=== PATIENT | male | born 1950 | race Caucasian/White ===

== ENCOUNTER 2021-03-25 20:44 | Emergency (ER) | payer MEDICARE, SELFPAY ==
[2021-03-25 20:51] VITALS: BP 153/89; PULSE 58; RESP 18; TEMP 36.3; O2SAT 100
[2021-03-25 22:19] VITALS: BP 150/80; PULSE 56; TEMP 37; O2SAT 100
--- NOTE | 2021-03-25 22:36 | ED.EXTPRO ---
HPI - Extremity Problem General Chief complaint: Extremity Problem,Nontraumatic Stated complaint: R foot swollen x 2 days Time Seen by Provider: 03/25/21 21:40 Source: patient and family History of Present Illness HPI Narrative: 71 years old white male complaining of nontraumatic pain at the right ankle and back of the right lower leg started 3 days ago. Patient was in airplane, 3 hours, 1 day prior to that. Patient denies any chest pain or shortness of breath. Patient denies any fever, chills, nausea, vomiting. Patient is not on antiplatelet or anticoagulant medication. Related Data Home Medications Medication Instructions Recorded Confirmed Adults Multivitamin 03/25/21 Calcarb 600 With Vitamin D 03/25/21 bupropion HCl 03/25/21 divalproex 03/25/21 famotidine 03/25/21 fluticasone propionate 03/25/21 lamotrigine 03/25/21 levothyroxine 03/25/21 omeprazole 03/25/21 simvastatin 03/25/21 timolol 03/25/21 vitamin B complex 03/25/21 vitamin E 03/25/21 Allergies Allergy/AdvReac Type Severity Reaction Status Date / Time No Known Allergies Allergy Verified 03/25/21 21:13 Review of Systems Review of Systems: CONSTITUTIONAL: Denies fever, chills, or sweats. EYES: Denies visual changes, redness, or discharge. ENT: Denies rhinorrhea, congestion, sore throat, or otalgia. CARDIOVASCULAR: Denies chest pain, palpitations, or edema. RESPIRATORY: Denies cough or dyspnea. GASTROINTESTINAL: Denies abdominal pain, nausea, vomiting, or diarrhea. GENITOURINARY: Denies dysuria or hematuria. SKIN: Denies rash or itching. MUSCULOSKELETAL: Denies back pain, joint pain, or myalgia. NEUROLOGIC: Denies headache, numbness, or weakness. PSYCHIATRIC: Denies anxiety or depression. Exam Narrative: General appearance: Well-developed, well-nourished Skin: Normal color Head: Normocephalic, nontraumatic Eyes: Clear conjunctiva ENT: Oropharynx normal, ears normal, nose normal Neck: Supple, nontender Chest and respiratory: Airway patent, no respiratory distress, no accessory muscle use Heart: Regular rate/rhythm Abdomen: Soft, nontender, no organomegaly, quiet bowel sounds Vascular: Normal peripheral pulses, normal capillary refill. Musculoskeletal: Right lower leg showed diffuse tenderness mainly at the calf area, slightly swollen compared to the left 1, no bruises, no erythema, no focal tenderness, no limited range of motion of the right ankle or right knee. 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, no gross motor deficit Course Course Emergency Course: Stable Vital Signs Vital signs: Vital Signs Temperature 36.3 C L 03/25/21 20:51 Pulse Rate 58 L 03/25/21 20:51 Respiratory Rate 18 03/25/21 20:51 Blood Pressure 153/89 H 03/25/21 20:51 Pulse Oximetry 100 03/25/21 20:51 Temperature 37.0 C 03/25/21 22:19 Pulse Rate 56 L 03/25/21 22:19 Respiratory Rate 18 03/25/21 20:51 Blood Pressure 150/80 H 03/25/21 22:19 Pulse Oximetry 100 03/25/21 22:19 MDM - Extremity (Nontraumatic) MDM Narrative Medical decision making narrative: Work-up showed elevated D-dimer, plus tenderness and swelling of the right lower leg, consistent with deep vein thrombosis. Lovenox was given in the ED prior to discharge, patient scheduled to get venous Doppler of the right lower extremity in a.m. Critical Care Time Critical Care Time Critical Care Time: No Discharge Plan Discharge Clinical Impression: Acute leg pain Patient Disposition: Home, Self-Care Condition: Stable Instructions: Antibiotic Form, Leg Pain (ED) Additional Instructions: Come to the radiology department at 7 AM for venous Doppler of
--- NOTE | 2021-03-25 22:41 | PC.NURSE ---
Labs collected per glass installer technician.
[2021-03-25 23:11] LABS: D Dimer 7.44 ug/mL (<0.48)
[2021-03-26] MEDS: ENOXAPARIN 80 MG/0.8 ML SYRINGE SUB-Q (00:18)
== END 2021-03-26 00:25 | disposition home or self-care (01) ==
PROVIDERS: Emergency Provider Emergency Medicine
DX: M79.661 Pain in right lower leg (principal)
CPT/HCPCS: 36415; 85380; 96372; 99283; J1650

== ENCOUNTER 2021-03-26 07:19 | Outpatient (CLI) | payer MEDICARE, SELFPAY ==
--- NOTE | ~2021-03-26 | US_ITS ---
EXAMINATION: US venous doppler LE EXAM DATE: 03/26/2021 07:54 INDICATION: M79.606 - Pain in leg, unspecified TECHNIQUE: Multiple grayscale, color flow and Doppler images of the right lower extremity deep venous system obtained and reviewed. There is no prior study for comparison. FINDINGS: RIGHT SIDE Common femoral: -------- Normal. Profunda femoral: ------- Normal. Femoral: Thrombosed. Popliteal: Thrombosed. Posterior tibial: --------- Normal. Peroneal: Thrombosed. Gastrocnemius: Not visualized. Soleus: Not visualized. Greater saphenous: ----- Normal. Lesser saphenous: ------ Not visualized. IMPRESSION: Positive for right femoral, popliteal, peroneal DVT. Reviewed, dictated and finalized at location A. EL MANAGER
== END 2021-03-26 07:20 | disposition home or self-care (01) ==
PROVIDERS: PCP Emergency Medicine; Visit Provider Emergency Medicine
DX: I82.431 Acute embolism and thrombosis of right popliteal vein (principal); I82.451 Acute embolism and thrombosis of right peroneal vein; I82.411 Acute embolism and thrombosis of right femoral vein
CPT/HCPCS: 93971

== ENCOUNTER 2021-03-26 08:23 | Observation (INO) | payer MEDICARE, SELFPAY ==
[2021-03-26] VITALS (31 sets, daily range): BP systolic 102–141; BP diastolic 59–97; PULSE 51–84; RESP 13–20; TEMP 36.1–36.9; O2SAT 92–100
--- NOTE | ~2021-03-26 | XR_ITS ---
EXAMINATION: XR chest 2V DATE: 03/26/2021 19:32 INDICATION: Shortness of breath TECHNIQUE: Frontal and lateral views of the chest are obtained COMPARISON: None available FINDINGS: There are minimal airspace opacities of the left upper lung zone. There is no pleural effus ion or pneumothorax. Calcified bilateral hilar and mediastinal lymph nodes are consistent with old gr anulomatous disease. The heart size is normal. There our age indeterminate compression fractures of t he thoracic and lumbar spine. IMPRESSION: 1. Minimal airspace opacity of the left upper lobe, consistent with atelectasis versus pneumonia. Reviewed, dictated and finalized at location F. [place] CLIENT MANAGER
--- NOTE | ~2021-03-26 | CT_ITS ---
EXAMINATION: CTA chest PE protocol DATE: 03/27/2021 09:35 INDICATION: Shortness of breath. TECHNIQUE: Computed tomography angiography (CTA) of the chest was performed with 100 mL Omnipaque-350 intravenous contrast timed to evaluate the pulmonary arteries. Coronal maximum intensity projection 3D-reconstructions were created by the technologist. Automated exposure control and iterative reconst ruction technique were employed. The dose-length product was 346.27 mGy-cm. COMPARISON: Chest 2 views 03/26/2021 FINDINGS: There is mild atelectasis bilaterally. Calcified bilateral lung nodules and calcified hilar and mediastinal lymph nodes are consistent with old granulomatous disease. No pleural effusion. Card iomegaly is noted. No pericardial effusion. Calcifications in the liver and spleen are consistent wit h old granulomatous disease. There are cysts in the liver measuring up to 1.6 cm. There is no pulmona ry embolus. There is an old healed fracture of the sternum. There are multiple chronic vertebral body fractures. There is mild thoracic spondylosis. IMPRESSION: 1. No pulmonary embolus. Reviewed, dictated and finalized at location A. TENDER IMPRESSION: 1. No pulmonary embolus.
[2021-03-26 09:21] LABS: Basophils Percent Auto 0.6 % (0.2-1.2); Eosinophils Absolute Auto 0.4 K/mm3 (0-0.3); Eosinophils Percent Auto 6.5 % (0-4.4); Hematocrit 36.2 % (42.0-52.0); Hemoglobin 11.4 g/dL (14.0-18.0); Immature Granulocyte Absolute 0.02 K/mm3 (0.00-0.031); Immature Granulocyte Percent A 0.3 % (0-0.5); Lymphocytes Absolute Auto 1.29 K/mm3 (0.9-3.2); Lymphocytes Percent Auto 20.9 % (18.3-44.2); Mean Corpuscular HGB Conc 31.5 g/dl (32-36); Mean Corpuscular Hemoglobin 28.7 pg (26-34); Mean Corpuscular Volume 91.2 fl (80-100); Mean Platelet Volume 9.9 fl (7.4-10.4); Monocytes Absolute Auto 0.8 K/mm3 (0.1-0.6); Monocytes Percent Auto 13.6 % (2.6-8.5); Neutrophils Absolute Auto 3.6 K/mm3 (1.3-6.7); Neutrophils Percent Auto 58.1 % (45.5-73.1); Platelet Count Result 163 k/mm3 (150-375); Red Blood Count 3.97 M/mm3 (4.6-6.20); Red Cell Distribution Width 14.6 % (11.5-14.5); White Blood Count 6.2 K/mm3 (4.5-10.0)
[2021-03-26 09:32] LABS: Anion Gap 4 mmol/L (8-16); Blood Urea Nitrogen 18 mg/dL (9-20); Calcium 8.6 mg/dL (8.4-10.2); Carbon Dioxide 32 mmol/L (22-30); Chloride 103 mmol/L (98-107); Estimated CRCL calculation 50 ml/min; Estimated Glomerular Filt Rate 60; Glucose 95 mg/dL (65-110); Potassium 4.4 mmol/L (3.4-5.0); Sodium 139 mmol/L (137-145)
[2021-03-26 09:36] LABS: INR 1.2; Prothrombin Time 14.7 Seconds (11.1-14.7)
--- NOTE | 2021-03-26 10:31 | ED.GENADULT ---
HPI - General Adult General Chief complaint: Extremity Injury, Lower Stated complaint: postive venous doppler Time Seen by Provider: 03/26/21 08:38 Source: patient Mode of arrival: wheelchair Limitations: no limitations History of Present Illness HPI narrative: 71-year-old with no major medical problems here with complaints of right leg pain and swelling. Patient was seen last evening was discharged home after receiving Lovenox. Patient was at the ultrasound this morning which showed extensive DVT from femoral to peroneal. He presently denies any chest pain or shortness of breath. No history of fever or chills. As per the note patient had a recent air travel from [place]. He states that he lives in [place] and visiting family here in [place]. He denies any previous history of DVT Onset (ago): day(s) (1) Location: lower extremity (right) Radiation: non-radiation Severity: moderate Pain Consistency: constant Relieving factors: none Exacerbating factors: none Associated symptoms: denies other symptoms Related Data Home Medications Medication Instructions Recorded Confirmed Adults Multivitamin 03/25/21 Calcarb 600 With Vitamin D 03/25/21 bupropion HCl 03/25/21 divalproex 03/25/21 famotidine 03/25/21 fluticasone propionate 03/25/21 lamotrigine 03/25/21 levothyroxine 03/25/21 omeprazole 03/25/21 simvastatin 03/25/21 timolol 03/25/21 vitamin B complex 03/25/21 vitamin E 03/25/21 Allergies Allergy/AdvReac Type Severity Reaction Status Date / Time No Known Allergies Allergy Verified 03/26/21 08:40 Review of Systems Review of Systems: All systems reviewed & are unremarkable except as noted in HPI and below Constitutional: Constitutional: Reports no additional constitutional complaints Eyes: Eyes: Reports no additional eye complaints ENT: Reports system reviewed and no additional complaints, except as documented Cardiovascular: Cardiovascular: Reports no additional cardiovascular complaints Respiratory: Respiratory: Reports no additional respiratory complaints Gastrointestinal: Gastrointestinal: Reports no additional gastrointestinal complaints Musculoskeletal: Musculoskeletal: Reports as per HPI Integumentary/Breasts: Skin/Breast: Reports system reviewed and no additional complaints, except as docu Neurologic: Reports system reviewed and no additional complaints, except as documented Psychiatric: Psychiatric: Reports no additional psychiatric complaints Endocrine: Endocrine: Reports no additional endocrine complaints Exam Narrative: GENERAL: Well-appearing, well-nourished, and in no acute distress. HEAD: Normocephalic, atraumatic. EYES: PERRLA and EOMI. NECK: Supple. CHEST: Clear to auscultation. No respiratory distress. HEART: Regular rate and rhythm. No murmur heard. Normal peripheral pulses. ABDOMEN: Soft, nontender, nondistended, normal active bowel sounds. EXTREMITIES: Normal range of motion. Right leg swollen diffuse , non tender , palpable distal pulse. SKIN: Warm, dry, no rash. NEURO: No focal deficits. Alert and oriented x3. PSYCH: Normal mood and affect. Course Course Emergency Course: I reviewed the ultrasound report has a pretty extensive DVT. Patient is visiting from [place] has no primary doctor we will admit him to the hospital give him Lovenox and transition to oral anticoagulant. Discussed with hospitalist agreed to admit the patient. Vital Signs Vital signs: Vital Signs Temperature 36.6 C 03/26/21 08:29 Pulse Rate 54 L 03/26/21 08:29 Respiratory Rate 17 03/26/21 08:29 Blood Pressure 140/85 03/26/21 08:29 Pulse Oximetry 99 03/26/21 08:29 Temperature 36.6 C 03/26/21 08:29 Pulse Rate 55 L 03/26/21 10:00 Respiratory Rate 17 03/26/21 10:00 Blood Pressure 137/92 H 03/26/21 10:11 Pulse Oximetry 100 03/26/21 10:11 Medical Decision Making Vital Signs Vital Signs: Vital Signs Temperature 36.6 C 03/26/21 08
--- NOTE | 2021-03-26 10:36 | PC.NURSE ---
Per EDP Pee, administer Lovenox at 12pm, last dose was at 12am last night.
[2021-03-26] MEDS: ENOXAPARIN 80 MG/0.8 ML SYRINGE SUB-Q ×2 (11:13→20:10)
--- NOTE | 2021-03-26 13:24 | ADMGEN ---
This patient, Jeffrey Mccoy, was admitted to Medical Room 345-01. Patient/family oriented to hospital policies and general routines including ID bracelet, bed and alarms, visiting hours, pain management, procedures, bathroom and other care routines, personal items, smoking policy, room service/diet, and visiting hours. Information on how to activate the Rapid Response Team has been discussed. Patient/Family are encouraged to report perceived risks to care and to ask questions if they do not understand what they are told or what they should do.
--- NOTE | 2021-03-26 15:37 | PM.IMHP ---
H&P: HPI History of Present Illness Date/Time: PATIENT ADMITTED UNDER OBSERVATION STATUS 03/26/21 15:37 Chief Complaint: Leg swelling Narrative: 71yo male with hypothyroidism here for right leg edema and pain. Patient flew to [place] on March 19. The flight was about 2+ hours. No history DVT or PE. No family history of venous thromboembolic disease. Since arrival patient has noted increasing right lower extremity edema. He has also noted right medial calf/ankle pain. No right posterior calf pain or thigh pain. No left leg symptoms. No chest pain, shortness of breath, fever, chills, cough. He has no hx of asthma, COPD, sleep apnea, CAD, seizures or stroke history. Patient presented to the emergency room last evening. His D-Dimer was elevated. He was given a dose of therapeutic Lovenox and discharged home with a scheduled right LE ultrasound this morning. This morning, patient had a venous ultrasound of the right lower extremity which showed right femoral, popliteal and peroneal DVT. He returned to the ED. Lab work showed a serum bicarb of 32 and hemoglobin of 11.4. No complaints of rectal bleeding or abdominal pain. He had a colonoscopy about 5-6 years ago that was negative. He has yearly PSA test which have been negative. No weight loss. No enlarged lymph nodes that he is concerned about. No GERD symptoms but takes Pepcid and Omeprazole. He has been told he was anemic in the past. He takes the Testosterone for bone denisty. No alcohol, drug or tobacco use. Patient was started on therapeutic Lovenox and admitted for further care. Review of Systems Review of Systems: All systems reviewed & are unremarkable except as noted in HPI and below PMFSH Past Medical History Medical History (Updated 03/27/21 @ 00:00 by [facility] Da[facility]) Cataracts, bilateral Difficulty controlling anger Glaucoma Hyperlipidemia Hypothyroidism Osteoporosis TGA (transient global amnesia) Surgical History Surgical History (Updated 03/26/21 @ 17:03 by Jaden Ratliff MD) History of umbilical hernia repair Family History Family History (Updated 03/26/21 @ 17:03 by Jaden Ratliff MD) Other Unknown family medical history Social History Social History (Updated 03/26/21 @ 17:04 by Jaden Ratliff MD) Social History: Patient's mother and father by motor vehicle accident at a young age. He lives at home with his in [place]. No pets at home but the does have small horses. He quit tobacco in 1986 after smoking half a pack a day for about 19 years. He denies alcohol or drug use. He wishes to be a DNR. He nominated his to be the individual would make medical decisions for him if he is unable Smoking packs per day: 0.5 Smoking cigarettes per day: 10.0 Years smoked: 18 Smoking pack-years: 9.00 Smoking status: Former smoker Spiritual care concerns: No Meds Home Medications and Allergies Home Medications Medication Instructions Recorded Confirmed Type brimonidine-timolol [Combigan] 1 drp OPHTHALMIC (EYE) BID 03/26/21 03/26/21 History bupropion HCl 100 mg PO DAILY 03/26/21 03/26/21 History calcium carbonate-vitamin D3 1 tablet PO BID 03/26/21 03/26/21 History denosumab [Prolia] See Rx Instructions .ROUTE .COMPLEX 03/26/21 03/26/21 History divalproex 250 mg PO DAILY 03/26/21 03/26/21 History famotidine 20 mg PO DAILY 03/26/21 03/26/21 History fluticasone propionate 1 spray INTRANASAL DAILY 03/26/21 03/26/21 History levothyroxine [Euthyrox] 25 mcg PO DAILY 03/26/21 03/26/21 History htnvridjbshc-upq-qfjx-FA-vit K 1 tablet PO DAILY 03/26/21 03/26/21 History [Adults Multivitamin] omeprazole 20 mg PO HS 03/26/21 03/26/21 History pyridoxine (vitamin B6) 100 mg PO DAILY 03/26/21 03/26/21 History simvastatin 20 mg PO DAILY 03/26/21 03/26/21 History testosterone See Rx Instructions .ROUTE .COMPLEX 03/26/21 03/26/21 History vitamin E 180 mg PO DAILY 03/26/21 03/26/21 History
[2021-03-26] MEDS: PANTOPRAZOLE 40 MG TABLET PO (20:10)
[2021-03-26] MEDS: TIMOLOL MALEATE 0.5% OP SOLN 5 ML BOTTLE 1 DROP EACH EYE (20:10)
[2021-03-26] MEDS: BRIMONIDINE TARTRATE 0.2% OP SOLN 5 ML BTL 1 DROP EACH EYE (20:10)
[2021-03-27] VITALS (7 sets, daily range): BP systolic 127–133; BP diastolic 67–82; PULSE 48–81; RESP 16; TEMP 36.1; O2SAT 98–99
[2021-03-27 06:01] LABS: Basophils Percent Auto 0.6 % (0.2-1.2); Eosinophils Absolute Auto 0.4 K/mm3 (0-0.3); Eosinophils Percent Auto 6.1 % (0-4.4); Hematocrit 35.3 % (42.0-52.0); Hemoglobin 11.1 g/dL (14.0-18.0); Immature Granulocyte Absolute 0.01 K/mm3 (0.00-0.031); Immature Granulocyte Percent A 0.2 % (0-0.5); Lymphocytes Absolute Auto 1.51 K/mm3 (0.9-3.2); Lymphocytes Percent Auto 24.2 % (18.3-44.2); Mean Corpuscular HGB Conc 31.4 g/dl (32-36); Mean Corpuscular Hemoglobin 28.8 pg (26-34); Mean Corpuscular Volume 91.5 fl (80-100); Mean Platelet Volume 9.7 fl (7.4-10.4); Monocytes Absolute Auto 0.9 K/mm3 (0.1-0.6); Monocytes Percent Auto 13.8 % (2.6-8.5); Neutrophils Absolute Auto 3.4 K/mm3 (1.3-6.7); Neutrophils Percent Auto 55.1 % (45.5-73.1); Platelet Count Result 166 k/mm3 (150-375); Red Blood Count 3.86 M/mm3 (4.6-6.20); Red Cell Distribution Width 14.8 % (11.5-14.5); White Blood Count 6.2 K/mm3 (4.5-10.0)
[2021-03-27 06:36] LABS: Iron 36 ug/dL (49-181)
[2021-03-27 06:46] LABS: Percent Iron Saturation 10 % (20-50)
[2021-03-27 07:12] LABS: Folic Acid 18.6 ng/mL (2.76->20)
[2021-03-27] MEDS: PYRIDOXINE HCL 50 MG TABLET 100 MG PO (08:21)
[2021-03-27] MEDS: SIMVASTATIN 20 MG TABLET PO (08:21)
[2021-03-27] MEDS: MULTIVITAMINS /C LUTEIN (CENTRUM SILVER) TABLET *BKC 1 TAB PO (08:21)
[2021-03-27] MEDS: DIVALPROEX SODIUM DR 250 MG TABEC PO (08:21)
[2021-03-27] MEDS: APIXABAN 5 MG TABLET 10 MG PO (08:21)
[2021-03-27] MEDS: FLUTICASONE PROPIONATE 0.05% NA SPR 16 GM BTL (*BKC) 1 SPRAY NASAL (08:21)
[2021-03-27] MEDS: FAMOTIDINE 20 MG TABLET PO (08:21)
[2021-03-27] MEDS: VITAMIN E 400 UNIT CAPSULE PO (08:21)
[2021-03-27] MEDS: buPROPion HCL 100 MG TABLET PO (08:21)
[2021-03-27] MEDS: LEVOTHYROXINE SODIUM 25 MCG TABLET PO (08:21)
[2021-03-27] MEDS: TIMOLOL MALEATE 0.5% OP SOLN 5 ML BOTTLE 1 DROP EACH EYE (08:22)
[2021-03-27] MEDS: BRIMONIDINE TARTRATE 0.2% OP SOLN 5 ML BTL 1 DROP EACH EYE (08:22)
--- NOTE | 2021-03-27 15:45 | PM.DS ---
DS: Admitting Diagnosis Discharge Date 03/27/21 Admitting Diagnosis DVT DS: Discharge Diagnosis Discharge Diagnosis (1) DVT of deep femoral vein: Qualifiers: Laterality: right Qualified Code(s): I82.411 - Acute embolism and thrombosis of right femoral vein Code(s): I82.419 - Acute embolism and thrombosis of unspecified femoral vein Status: Acute (2) Anemia: Code(s): D64.9 - Anemia, unspecified Status: Acute (3) Difficulty controlling anger: Code(s): R45.4 - Irritability and anger Status: Inactive (4) Hypothyroidism: Code(s): E03.9 - Hypothyroidism, unspecified Status: Inactive DS: Summary Hospital Course Reason for hospitalization: 71yo male present back to the ED after having a positive ultrasound doppler for DVT. Please see H&P for details. Hospital Course: Patient presented to the ED 03/25/2021 with complaints right leg edema and pain. He had flown from [place] few days prior. His D-dimer was positive. He was given 1 dose of Lovenox and an outpatient venous Doppler was ordered. Patient had the venous Doppler on 03/26/2021 which showed right femoral, popliteal and peroneal DVT. Pt presented back to the emergency room. He was given another dose of Lovenox and admitted for further care. Chest x-ray showed minimal airspace opacity in the left upper lobe. Patient was not having any complaints of chest pain or shortness of breath. A CTA was performed which showed no pulmonary embolism. White count and platelet count were normal. Hemoglobin was low at 11.4. He has had a colonoscopy about 4 years ago. Basic metabolic panel was normal. Was noted to be iron deficient. B12 and folate levels were normal. He was transitioned to Eliquis. He could afford this medication. He overall did well as a to be discharged home on 03/27/2021 Status at Discharge Cognitive/behavioral status at discharge: stable Time Spent with Patient Time attestation: Total time spent providing and/or coordinating discharge services: 35 minutes Time spent: Greater than 30 minutes Exam Narrative: AF 96.9 127/82 64 16 99% ra Gen - NARD Chest - CTA bilaterally. Nml RR CV - RRR S1/S2 Abd - soft, NT/ND, +BS Ext -2+ DP pulses bilaterally. Minor right lower extremity edema. Psych - normal mood and affect. Skin - warm and dry. DS: Data Data Completed and Pending Labs on day of discharge: Labs from last 24 hours 03/27/21 03/27/21 03/27/21 05:27 05:27 05:27 WBC 6.2 RBC 3.86 L Hgb 11.1 L Hct 35.3 L MCV 91.5 MCH 28.8 MCHC 31.4 L RDW 14.8 H Plt Count 166 MPV 9.7 Immature Gran % (Auto) 0.2 Neut % (Auto) 55.1 Lymph % (Auto) 24.2 [place] % (Auto) 13.8 H Eos % (Auto) 6.1 H Baso % (Auto) 0.6 Lymph # (Auto) 1.51 [place] # (Auto) 0.9 H Eos # (Auto) 0.4 H Baso # (Auto) 0.0 Abs Immat Gran (auto) 0.01 Absolute Neuts (auto) 3.4 Absolute Nucleated RBC 0.0 Nucleated RBC % 0.0 Iron 36 L TIBC 350 % Saturation 10 L Ferritin 14.10 Vitamin B12 992.0 H Folate 18.6 Discharge Plan Discharge Attending physician on discharge: Jaden Ratliff Discharging Clinician: Jaden Ratliff Anticipated Discharge Date/Time: 03/27/21 15:55 Patient Disposition: Home, Self-Care Activity: as tolerated Diet: regular Discharge Instructions: Please avoid large gathering, wear face coverings in public and practice social distance. Take precautions to avoid falls. Rise slowly from a lying or sitting position. Pause before standing or walking. Contact your doctor or call 911 and come to the Emergency Room if you have any type of trauma, lightheadedness with standing or other worrisome symptoms. Avoid NSAIDs (ibuprofen, naproxen, Aleve). Tylenol is safe to take. Follow-up with your doctor in 1-2 weeks. Please call for appointment. You have been given a prescription for Eliqu
[2021-03-27 22:05] LABS: IFOB Positive Control Positive; Immunochemical Fecal Occult Bl Negative (N)
== END 2021-03-27 18:15 | disposition home or self-care (01) ==
LOC: ANHED 10:40 → ANH3MED 15:32
PROVIDERS: Admitting Provider Internal Medicine; Emergency Provider Family Medicine; Visit Provider Internal Medicine
DX: I82.412 Acute embolism and thrombosis of left femoral vein (principal); D64.9 Anemia, unspecified; R45.4 Irritability and anger; H40.9 Unspecified glaucoma; E03.9 Hypothyroidism, unspecified; E78.5 Hyperlipidemia, unspecified; M81.0 Age-related osteoporosis without current pathological fracture; G45.4 Transient global amnesia
CPT/HCPCS: 36415; 71046; 71275; 80048; 82274; 82607; 82728; 82746; 83540; 83550; 85025; 85380; 85610; 93971; 96372; 99283; 99285; A9270; G0378; J1650; Q9967

== ENCOUNTER 2021-03-30 09:27 | Outpatient (CLI) | payer MEDICARE, SELFPAY ==
--- NOTE | ~2021-03-30 | XR_ITS ---
EXAMINATION: XR chest 2V DATE: 03/30/2021 10:00 INDICATION: Shortness of breath TECHNIQUE: PA and lateral views of the chest were obtained. COMPARISON: Chest radiograph and CT dated 03/26/2021 FINDINGS: Calcified nodules in the left upper lung zone with calcified bilateral hilar and mediastinal lymph no starla consistent with old granulomatous disease. No other airspace opacities, pulmonary edema, pleural effusion or pneumothorax. Heart size is normal. Tortuous thoracic aorta. Bridging ossification betwee n the posterior left fourth and fifth ribs likely sequela of old trauma. Chronic fractures of the dot rnum and multiple thoracic lumbar vertebrae. IMPRESSION: 1. No acute cardiopulmonary disease. Reviewed, dictated and finalized at location B. HOMETRIC EXAMINER
[2021-03-30 09:55] LABS: Basophils Absolute Auto 0.1 K/mm3 (0.0-0.1); Basophils Percent Auto 0.8 % (0.2-1.2); Eosinophils Absolute Auto 0.4 K/mm3 (0-0.3); Eosinophils Percent Auto 5.7 % (0-4.4); Hematocrit 40.6 % (42.0-52.0); Hemoglobin 12.9 g/dL (14.0-18.0); Immature Granulocyte Absolute 0.02 K/mm3 (0.00-0.031); Immature Granulocyte Percent A 0.3 % (0-0.5); Lymphocytes Absolute Auto 1.41 K/mm3 (0.9-3.2); Lymphocytes Percent Auto 18.8 % (18.3-44.2); Mean Corpuscular HGB Conc 31.8 g/dl (32-36); Mean Corpuscular Hemoglobin 29.1 pg (26-34); Mean Corpuscular Volume 91.6 fl (80-100); Mean Platelet Volume 9.3 fl (7.4-10.4); Monocytes Absolute Auto 0.8 K/mm3 (0.1-0.6); Monocytes Percent Auto 10.3 % (2.6-8.5); Neutrophils Absolute Auto 4.8 K/mm3 (1.3-6.7); Neutrophils Percent Auto 64.1 % (45.5-73.1); Platelet Count Result 235 k/mm3 (150-375); Red Blood Count 4.43 M/mm3 (4.6-6.20); Red Cell Distribution Width 14.9 % (11.5-14.5); White Blood Count 7.5 K/mm3 (4.5-10.0)
[2021-03-30 10:38] LABS: Anion Gap 4 mmol/L (8-16); Blood Urea Nitrogen 20 mg/dL (9-20); Calcium 8.8 mg/dL (8.4-10.2); Carbon Dioxide 33 mmol/L (22-30); Chloride 102 mmol/L (98-107); Estimated Glomerular Filt Rate 50; Glucose 110 mg/dL (65-110); Potassium 4.3 mmol/L (3.4-5.0); Sodium 139 mmol/L (137-145)
[2021-03-30 10:55] LABS: Free T4 Free Thyroxine 1.14 ng/mL (0.78-2.19)
== END 2021-03-30 09:28 | disposition home or self-care (01) ==
PROVIDERS: PCP Internal Medicine; Visit Provider Internal Medicine
DX: R06.02 Shortness of breath (principal); I82.411 Acute embolism and thrombosis of right femoral vein; E03.9 Hypothyroidism, unspecified; D50.9 Iron deficiency anemia, unspecified
CPT/HCPCS: 36415; 71046; 80048; 84439; 84443; 85025